=== PATIENT | male | born 1960 | race Hispanic/Latino ===

== ENCOUNTER 2018-07-20 13:23 | Emergency (ER) | payer OTHER ==
[~2018-07-20] VITALS: Ht 170.2 cm; Wt 70.3 kg
[2018-07-20] MEDS ORDERED: SODIUM CHLORIDE 0.9% 1000ML 1,000 ML IV STA ×2 (14:00→15:57)
[2018-07-20 14:22] LABS: BASOPHILS # (AUTO) 0.1 (0.0-0.1); EOSINOPHILS # (AUTO) 0.3 (0.0-0.4); EOSINOPHILS % 3.7 % (0.0-6.0); HEMOGLOBIN 14.1 g/dL (14.0-18.0); LYMPHOCYTES % 13.2 % (18.0-39.1); MEAN CORPUSCULAR HEMOGLOBIN 31.8 pg (28-32); MEAN CORPUSCULAR HGB CONC 34.4 g/dL (31-35); MEAN CORPUSCULAR VOLUME 92.3 fL (81-99); MONOCYTES % 12.3 % (4.4-11.3); NEUTROPHILS # (AUTO) 5.4 (2.1-6.9); NEUTROPHILS % 69.3 % (38.7-80.0); PLATELET COUNT 204 x10e3/uL (140-360); RED BLOOD COUNT 4.44 x10e6/uL (4.3-5.7); RED CELL DISTRIBUTION WIDTH 12.2 % (11.7-14.4)
[2018-07-20 14:35] LABS: AMPHETAMINES SCREEN,URINE NEGATIVE (NEGATIVE); BENZODIAZEPINES SCREEN,URINE NEGATIVE (NEGATIVE); PHENCYCLIDINE SCREEN,URINE NEGATIVE (NEGATIVE)
[2018-07-20 14:38] LABS: ALANINE AMINOTRANSFERASE 79 IU/L (0-55); ALBUMIN 3.2 g/dL (3.5-5.0); ALBUMIN/GLOBULIN RATIO 0.7 (0.8-2.0); ALKALINE PHOSPHATASE 78 IU/L (40-150); ANION GAP 16.4 mmol/L (8-16); BLOOD UREA NITROGEN 8 mg/dL (7-26); BUN/CREATININE RATIO 8 (6-25); CARBON DIOXIDE 21 mmol/L (22-29); CHLORIDE 93 mmol/L (98-107); CREATININE, SERUM 0.97 mg/dL (0.72-1.25); EST GLOMERULAR FILTRATION RATE > 60 ML/MIN (60-); POTASSIUM 4.4 mmol/L (3.5-5.1); SODIUM 126 mmol/L (136-145)
[2018-07-20 14:44] LABS: GLUCOSE 451 mg/dL (74-118)
--- NOTE | 2018-07-20 14:55 | Diagnostic Imaging Report ---
BILATERAL FEET - 3 Images EACH HISTORY: Abscess, infection, rule out osteomyelitis COMPARISON: None available. FINDINGS: Bones: A mildly impacted fracture involving the proximal metaphysis of the right fourth proximal phalanx. Regional subtle impaction of the adjacent proximal metaphysis of the third proximal phalanx is possible. No aggressive osseous lesion. A small right plantar calcaneal enthesophyte. Joints: Osseous alignment is within normal limits and the joint spaces are well-maintained. Soft tissues: Diffuse scattered atherosclerotic vascular calcifications. Mild nonspecific right foot swelling. IMPRESSION: 1. Mildly impacted, subacute appearing, incompletely healed fracture of the base of the right fourth proximal phalanx. 2. Possible minimally impacted fracture of the adjacent base of the right third proximal phalanx. 3. No radiographic evidence of osteomyelitis. Signed by: Dr. Catalino Reed D.O., M.M.M. on 07/20/2018 2:52 PM
[2018-07-20] MEDS ORDERED: INSULIN REGULAR, HUMAN 100 UNIT/1 ML 3ML VIAL ONE (15:16)
[2018-07-20] MEDS ORDERED: CLINDAMYCIN 600MG / 50ML 50 ML IV NR (15:16)
[2018-07-20] MEDS ORDERED: IBUPROFEN 400 MG TAB PO NR (16:00)
[2018-07-20] MEDS ORDERED: INSULIN REGULAR, HUMAN 100 UNIT/1 ML 3ML VIAL SQ NR (16:00)
[2018-07-20] MEDS ORDERED: MORPHINE SULFATE INJ 4 MG/ML INJ 1ML IV STA (17:11)
== END 2018-07-20 18:02 | disposition home or self-care (01) ==
LOC: ER 13:23
DX: L03.116 Cellulitis of left lower limb (principal); L03.115 Cellulitis of right lower limb; E11.65 Type 2 diabetes mellitus with hyperglycemia; Z86.14 Personal history of Methicillin resistant Staphylococcus aureus infection; Z87.891 Personal history of nicotine dependence; F10.10 Alcohol abuse, uncomplicated; Z83.3 Family history of diabetes mellitus; Z82.49 Family history of ischemic heart disease and other diseases of the circulatory system; Z79.4 Long term (current) use of insulin
CPT/HCPCS: 36415; 80053; 80307; 80320; 82948; 83605; 85025; 87040; 99284; J2270; J7030

== ENCOUNTER 2018-07-28 01:28 | Inpatient (IN) | payer OTHER ==
[~2018-07-28] VITALS: Ht 167.6 cm; Wt 76.7 kg
[2018-07-28] VITALS (7 sets, daily range): BP systolic 106–134; BP diastolic 58–86
--- OUTSIDE RECORDS SUMMARY | 2018-07-28 01:31 | XMS REPORT ---
Author Author [facility] Address Unknown Phone Unavailable Care Team Providers Care Textile Machine Operator Name Role Phone Almita HARVEY Unavailable Unavailable Problems This patient has no known problems. Allergies, Adverse Reactions, Alerts This patient has no known allergies or adverse reactions. Medications This patient has no known medications. Results Test Description Test Time Test Comments Text Results Atomic Results Result Comments FOOT COMPLETE BILATERAL 2018-07-20 14:40:00 [place] [id number] [place] [id number] Patient Name: TRUONG SHARMA MR #: [id number] : 1960 Age/Sex: 58/M Req #: [id number] Adm Physician: Ordered by: OLGA ERICKSON PROVIDER NETWORK MANAGER Report #: [id number] Location: ER Room/Bed: Procedure: [id number] DX/FOOT COMPLETE BILATERAL Exam Date: 07/20/18 Exam Time: 1420 REPORT STATUS: Signed BILATERAL FEET - 3 Images EACH HISTORY: Abscess, infection, rule out osteomyelitis COMPARISON: None available. FINDINGS: Bones: A mildly impacted fracture involving the proximal metaphysis of the right fourth proximal phalanx. Regional subtle impaction of the adjacent proximal metaphysis of the third proximal phalanx is possible. No aggressive osseous lesion. A small right plantar calcaneal enthesophyte. Joints: Osseous alignment is within normal limits and the joint spaces are well-maintained. Soft tissues: Diffuse scattered atherosclerotic vascular calcifications. Mild nonspecific right foot swelling. IMPRESSION: 1. Mildly impacted, subacute appearing, incompletely healed fracture of the base of the right fourth proximal phalanx. 2. Possible minimally impacted fracture of the adjacent base of the right third proximal phalanx. 3. No radiographic evidence of osteomyelitis. Signed by: Dr. Darrius Reed D.O., M.M.M. on 07/20/2018 2:52 PM Dictated By: DARRIUS REED DO 145 Transcribed By: ANDREI on 07/20/181451 COPY TO: OLGA ERICKSON NP
[2018-07-28 02:09] LABS: BASOPHILS # (AUTO) 0.1 (0.0-0.1); BASOPHILS % 0.9 % (0.0-1.0); EOSINOPHILS # (AUTO) 0.4 (0.0-0.4); EOSINOPHILS % 5.5 % (0.0-6.0); HEMATOCRIT 39.9 % (38.2-49.6); HEMOGLOBIN 13.4 g/dL (14.0-18.0); LYMPHOCYTES # (AUTO) 1.4 (1.0-3.2); LYMPHOCYTES % 17.4 % (18.0-39.1); MEAN CORPUSCULAR HGB CONC 33.6 g/dL (31-35); MEAN CORPUSCULAR VOLUME 92.4 fL (81-99); MONOCYTES # (AUTO) 0.9 (0.2-0.8); MONOCYTES % 11.7 % (4.4-11.3); NEUTROPHILS # (AUTO) 4.9 (2.1-6.9); NEUTROPHILS % 63.9 % (38.7-80.0); PLATELET COUNT 285 x10e3/uL (140-360); RED BLOOD COUNT 4.32 x10e6/uL (4.3-5.7); RED CELL DISTRIBUTION WIDTH 11.9 % (11.7-14.4)
[2018-07-28 02:29] LABS: ALBUMIN 3.1 g/dL (3.5-5.0); ALBUMIN/GLOBULIN RATIO 0.6 (0.8-2.0); ANION GAP 13.8 mmol/L (8-16); CALCIUM 9.3 mg/dL (8.4-10.2); CREATININE, SERUM 1.26 mg/dL (0.72-1.25); POTASSIUM 3.8 mmol/L (3.5-5.1)
[2018-07-28] MEDS ORDERED: MEROPENEM 1GRAM 1 GM in SODIUM CHLORIDE 0.9% 100 ML 100 ML IV STA (04:09)
[2018-07-28] MEDS ORDERED: VANCOMYCIN 1GM/NS 250 ML 250 ML IV STA (04:09)
[2018-07-28] MEDS ORDERED: SODIUM CHLORIDE 0.9% 1000ML 1,000 ML IV SCH (04:22)
[2018-07-28] MEDS ORDERED: MORPHINE SULFATE 2 MG/ML SYR 1ML IV PRN (04:30)
[2018-07-28] MEDS ORDERED: DEXTROSE 50% SYRINGE 50 ML IV PRN ×2 (04:30→14:45)
[2018-07-28] MEDS ORDERED: ONDANSETRON HCL INJ 2MG/ML 2ML 2 MG/ML VIAL IV PRN ×2 (04:30→14:45)
--- NOTE | 2018-07-28 04:57 | Diagnostic Imaging Report ---
Exam: Right foot 2 views History: pain Comparison: None. Findings: No fracture or malalignment. Soft tissue swelling of the hallux. Vascular complications. Impression: Soft tissue swelling of the hallux. No osteomyelitis. Signed by: Dr. Zac Charles M.D. on 07/28/2018 4:54 AM
[2018-07-28] MEDS: MORPHINE SULFATE INJ 4 MG/ML INJ 1ML IV PRN ×3 (06:25→17:19)
--- NOTE | 2018-07-28 07:00 | NUR ---
received report from off going nurse. patient in room in bed. iv fluids as ordered. right foot wrapped with kerlex and is clean and dry. pending room assignment for admission, bed down call light in reach. will continue to monitor.
[2018-07-28] MEDS ORDERED: INSULIN LISPRO 100 UNIT/1 ML 3ML VIAL SQ SCH (07:30)
[2018-07-28 07:33] LABS: INR 1.01; PROTHROMBIN TIME 13.8 seconds (11.9-14.5)
[2018-07-28 07:34] LABS: PARTIAL THROMBOPLASTIN TIME 33.9 seconds (23.8-35.5)
--- NOTE | 2018-07-28 08:17 | NUR ---
consent for I&D of right foot abscess signed and placed into chart. patient changed into gown in prep for sx.
--- NOTE | 2018-07-28 08:24 | NUR ---
OR Tech in ER to transport patient for procedure. patient would like to be called when out of surgery. Chelly -
[2018-07-28] MEDS ORDERED: FENTANYL CITRATE/PF 100MCG/2 ML INJ ONE ×2 (09:34→13:42)
--- NOTE | 2018-07-28 10:44 | History and Physical ---
REASON FOR ADMISSION: Right foot abscess. HISTORY OF PRESENT ILLNESS: The patient is a gentleman, who is a diabetic, hypertensive, chronic kidney disease, stage 3. The patient presented earlier in the emergency room a week earlier after sustaining an injury to his foot after jumping off some rods, where he felt like he was having a cellulitis, so he was given antibiotic medications. Unfortunately, he noticed his foot to get worse with increasing pain and swelling, so therefore, he re-presented back to the emergency room where he was diagnosed to have a right foot abscess on the plantar side, so he is going to be admitted for further evaluation and treatment. PAST MEDICAL HISTORY: Diabetes, hypertension, peripheral arterial disease, chronic kidney disease, stage 3. MEDICATIONS: See JUN. ALLERGIES: SEE JUN. SOCIAL HISTORY: Occasional drinker. FAMILY HISTORY: Hypertension. PHYSICAL EXAMINATION: VITAL SIGNS: Temperature 98, blood pressure 140/99, pulse 74, and sats 98% on room air. GENERAL: Lying in bed, in no apparent distress. NECK: Supple. No JVD. CARDIOVASCULAR: Regular rate and rhythm. LUNGS: Clear to auscultation bilaterally. ABDOMEN: Good bowel sounds. Soft, nontender. EXTREMITIES: No clubbing or cyanosis. His right plantar foot is swollen, red erythematous. NEUROLOGIC: Nonfocal. ASSESSMENT AND PLAN: 1. Right foot abscess. We will continue with IV antibiotics and consult Dr. Mcmanus of Podiatry as well as Dr. Garcia. 2. Hypertension. Continue his home medications and monitor blood pressure. 3. Diabetes. Continue to monitor. 4. Chronic kidney disease, stage 3. Continue to monitor. 5. Peripheral arterial disease. Continue current care with his medication. We may need to do arterial Dopplers as well. Please see hospital chart for full details. MD LESA Neal/LYLA /[id number]
--- NOTE | 2018-07-28 10:49 | Pre Op History & Physical ---
REPORT TITLE: Preoperative H and P and consultation. CHIEF COMPLAINT AND HISTORY OF CHIEF COMPLAINT: I have been asked to see Mr. Serrato due to an abscess with cellulitis of the right foot. He apparently came into the ER last week and was given a round of IV antibiotics and discharged. He had stepped on a rock and was feeling some pain in his foot. After discharge, he continued working and walking on his foot and noticed increase in redness, swelling, and was unable to bear weight on his foot, came back to the ER last night and is evaluated this morning. He is currently afebrile and does not complain of chills or difficulty in breathing. Review of the case with Dr. Sutton of emergency medicine shows that he did seek care five days ago in our ER. REVIEW OF SYSTEMS: Otherwise negative. No complaints of fever, nausea, vomiting, or chills. No abdominal pain. He does have difficulty walking and severe pain and swelling in the right foot. PREVIOUS MEDICAL HISTORY: Does include diabetes. MEDICATIONS: Please see medical reconciliation form. SOCIAL HISTORY: The patient is a nonsmoker, who does consume beer on a daily basis. PHYSICAL EXAMINATION: EXTREMITIES: Physical evaluation of the lower extremity, the patient has nonpalpable pedal pulses likely due to edema. DERMATOLOGIC: There appears to be a loss of protective sensation, although with the degree of swelling he does have pain to pressure. There is a large abscessed area on the plantar aspect of his right foot. There is a small open area where an incision was made by the ER doctor for obtaining a culture and sensitivity. When the foot expressed, there is a purulent exudate exuded from that small wound and it would appear that the abscess is much larger than the small area that is draining. MUSCULOSKELETAL: The patient's foot is otherwise within normal limits. He does have mycotic nails, chronic tinea pedis, and some degree of atrophic skin changes bilaterally. Radiographs show no osteomyelitis that is obvious at this point. DIAGNOSES: Abscess with cellulitis of the right foot. Diabetes with distal peripheral neuropathy and probable peripheral arterial disease. PLAN: For an I and D with deep wound debridement of the right foot. Admission for further medical workup and vascular consultations, he will need IV antibiotics. Consent for I and D with deep wound debridement today as he is n.p.o. we will proceed directly to the OR. Jere PEGGY Mcmanus /[id number]
[2018-07-28] MEDS ORDERED: MORPHINE SULFATE INJ 4 MG/ML INJ 1ML ONE (11:32)
[2018-07-28] MEDS ORDERED: MEROPENEM 1GM 100 ML IV SCH (12:00)
--- NOTE | 2018-07-28 13:00 | NUR ---
RCD PT FROM RECOVERY BY BED PT IS ALERT AND ORIENTED VITALS CHECKED PT RESTING ON BED NO SIGNS OF ANY DISTRESS NOTED IV PATENT ADMISSION ASSESSMENT AND HISTORY DONE WOUND ON THE LEFT FOOT COVERED BY DRESSING NO SIGNS OF ANY BLEEDING THERE BED LOW AND LOCKED CALL LIGHT IN REACH
--- NOTE | 2018-07-28 13:30 | NUR ---
INCISION AND DRAINAGE DONE ON RIGHT FOOT NOT IN LEFT FOOT
[2018-07-28] MEDS ORDERED: MIDAZOLAM HCL 2 MG/2 ML VIAL ONE (13:42)
--- NOTE | 2018-07-28 14:00 | NUR ---
ELEVATED RT FOOT AND APPLIED ICE BAG
[2018-07-28] MEDS: SODIUM CHLORIDE 0.9% 1000ML 1,000 ML IV SCH ×2 (14:45→22:45)
[2018-07-28] MEDS: VANCOMYCIN 1GM/NS 250 ML 250 ML IV SCH (15:17)
[2018-07-28] MEDS ORDERED: VANCOMYCIN 1GM/NS 250 ML 250 ML IV SCH (16:00)
--- NOTE | 2018-07-28 16:00 | Operative Report ---
DATE OF PROCEDURE: SURGEON: Jere Mcmanus DPM PREOPERATIVE DIAGNOSIS: Abscess cellulitis of the right foot. POSTOPERATIVE DIAGNOSIS: Abscess cellulitis of the right foot. TITLE OF OPERATION: I and D with deep wound debridement, right foot. ANESTHESIA: General endotracheal, Dr. Paul. HEMOSTASIS: None used. PROCEDURE IN DETAIL: The patient was taken to the operating room in a mildly sedated state and placed upon the operating table in supine position. Following induction of general anesthetic, the right foot was prepped and draped in the usual aseptic manner utilizing Betadine prep. The right lower extremity was placed on the operating table prior to performing the following procedure. Procedure #1 is the incision and drainage with deep wound debridement of the right foot without use of the tourniquet. After a full surgical prep, a transverse incision was placed at the level of the surgical neck of the metatarsals proximal to the weightbearing surface. It was in this area that a large abscess with a small draining area with purulent exudate was noted. This small draining area had been facilitated in the ER where a culture and sensitivity had already been taken. On expression, a significant amount of purulent exudate was expressed from this fairly superficial wound. The transverse wound into deep tissues showed a significant amount of purulent exudate, not only subcutaneously, but also into the intermetatarsal spaces and proximally into the central arch area both superficial to and deep to the plantar fascia. Full open incision to allow for drainage was performed with each plantar space of the foot probed and drained. The necrotic superficial and deep tissue including skin, subcutaneous tissue, and muscle was removed from the plantar aspect of the foot. The wound itself after debridement was approximately 6 cm x 4 cm and 3 cm deep to tendon and muscle. This debridement was excisional in nature. After all the compartments had been probed and the wound was irrigated with copious amounts of a bacitracin solution, the release of the compartments was felt to be complete. The area was packed open with quarter-inch iodoform gauze, nonadhesive dressings, and the appropriate mildly compressive dressings. There was some bleeding, but it was felt to be minimal considering the significance of the wound. Arterial Dopplers are ordered and Vascular consultation will be obtained. The patient was transported to the PACU for further evaluation and treatment and will be admitted for IV antibiotics and further medical stabilization and workup. Jere PEGGY Mcmanus /[id number]
[2018-07-28] MEDS: INSULIN LISPRO 100 UNIT/1 ML 3ML VIAL SQ SCH ×2 (16:30→21:00)
--- NOTE | 2018-07-28 16:57 | NUR ---
paged and notified the fever to dr trotter got new orders
[2018-07-28] MEDS: ACETAMINOPHEN 325 MG TAB PO PRN (17:08)
--- NOTE | 2018-07-28 18:30 | NUR ---
RECHECKED FEVER 100.3 HR 123 NIGHT NURSE AWARE ABOUT IT BECAUSE OF FEVER DIDN'T NOTIFIED DR MARTÍNEZ
[2018-07-28] MEDS ORDERED: PROPOFOL IV EMULSION 10 MG/ML 20 ML VIAL ONE (18:43)
[2018-07-28] MEDS ORDERED: LIDOCAINE HCL 2% LOCAL INJ 5 ML SDV VIAL INJ ONE (18:43)
[2018-07-28] MEDS ORDERED: ONDANSETRON HCL INJ 2MG/ML 2ML 2 MG/ML VIAL ONE (18:43)
[2018-07-28] MEDS ORDERED: SEVOFLURANE INHAL SOLN 250 ML PEN BTL ONE (18:43)
--- NOTE | 2018-07-28 18:51 | NUR ---
PT RESTING ON BED BED BED SIDE REPORT GIVEN TO ONCOMING NURSE
[2018-07-28] MEDS: MEROPENEM 1GM 100 ML IV SCH (20:56)
[2018-07-28] MEDS: INSULIN LISPRO 100 UNIT/1 ML 3ML VIAL SQ ONE (21:24)
--- NOTE | 2018-07-28 22:12 | Consultation ---
DATE OF CONSULTATION: REASON FOR CONSULTATION: Infection of the foot. HISTORY OF PRESENT ILLNESS: This patient who is a 58-year-old [place] male, the patient has history of diabetes mellitus, hypertension, arterial disease, chronic kidney disease stage 3. Two weeks ago, he jumped from a truck and he had to rock, sustaining an injury to his right foot. Apparently, he has some swelling and bruising, but now there is redness, swelling, fever and chills. He came to the hospital because of the pain. The patient was admitted, he was found to have an abscess and underwent I and D. The patient apparently was in the emergency room a week ago, received IV antibiotics. After discharge, he continued to work and the redness and swelling got worse, so he came back to the emergency room where he was admitted. He underwent I and D and I am asked to see him. PAST MEDICAL HISTORY: Diabetes mellitus. PAST SURGICAL HISTORY: Recent I and D of the foot. ALLERGIES: NKA. SOCIAL HISTORY: He denies smoking, but he drinks 8 beers a day. LABORATORY DATA: White count 7.7, hemoglobin 13. Sodium 126, potassium 3.8, creatinine 1.26. REVIEW OF SYSTEMS: HEENT: Negative. PULMONARY: Negative. CARDIAC: Negative. : Negative. PHYSICAL EXAMINATION: GENERAL: He is currently alert, oriented, does not seem to be in acute distress. VITAL SIGNS: Stable, currently afebrile. HEENT: He is not icteric. NECK: Supple. CHEST: Clear. HEART: S1, S2. No S3, S4, or murmur. ABDOMEN: Soft. Bowel sounds present. No tenderness. EXTREMITIES: There is no edema. The patient did undergo I and D by Dr. Mcmanus, culture was sent. IMPRESSION: 1. Abscess of the foot after an injury, status post I and D. X-ray was negative for osteo. Continue vancomycin and meropenem for the time being. 2. Chronic kidney disease. We will follow levels and adjust dose. Recheck CBC. 3. History of alcoholism. Observe the patient we will follow. MD SYLVIE Galloway/LYLA /[id number]
--- NOTE | 2018-07-28 23:28 | Consultation ---
DATE OF CONSULTATION: Cardiology Consultation. HISTORY OF PRESENT ILLNESS: This is a 58-year-old man with a history of diabetes, hypertension, chronic kidney disease, and hyperlipidemia, presented to the Emergency Department after sustaining an injury to his foot which further progressed into cellulitis. The patient had increasing amounts of pain, swelling and redness and was found to have a right foot abscess. He just received an incision and drainage with deep wound debridement of the right foot. We have been asked to consult on the patient with cardiovascular risk factors and possible vascular disease. REVIEW OF SYSTEMS: A 12-point review of system was conducted, is negative otherwise stated above in the HPI. PAST MEDICAL HISTORY: As stated above in the HPI. PAST SURGICAL HISTORY: Incision and drainage. PAST FAMILY HISTORY: No premature coronary artery disease or sudden cardiac . SOCIAL HISTORY: No illicit drug, alcohol, or tobacco use. ALLERGIES: PENICILLIN. MEDICATIONS: See medication reconciliation form. PHYSICAL EXAMINATION: VITAL SIGNS: Temperature is 98.1, heart rate is 108, blood pressure is 117/69, oxygen saturation 100% on room air, respirations are 18. GENERAL: Well appearing, well built, in no apparent distress. Alert and oriented x3. HEENT: Head is normocephalic, atraumatic. Eyes, the extraocular muscles are intact. Conjunctivae are clear. NECK: No JVD. No bruits. CARDIOVASCULAR: He is tachycardic, regular rhythm. Normal S1, S2. LUNGS: Clear to auscultation bilaterally. No wheezing or rales. ABDOMEN: Soft, nontender, nondistended. Normoactive bowel sounds. EXTREMITIES: No clubbing or cyanosis. The right foot is dressed and wrapped. LABORATORY DATA: Reviewed. RADIOLOGIC DATA: Arterial Doppler showed normal velocities and waveforms in bilateral lower extremities. IMPRESSION: 1. Right foot wound, status post incision and drainage with debridement. 2. Hypertension. 3. Hyperlipidemia. 4. Chronic kidney disease. RECOMMENDATIONS: Patient's arterial Doppler study showed no stenotic disease. His velocities and waveforms were within normal limits. The patient does not need angiography. Continue all current medications and treatment plan per primary team. Cesar Sihdu DO BM/MODL /[id number]
[2018-07-29] VITALS (8 sets, daily range): BP systolic 102–129; BP diastolic 60–69
[2018-07-29] MEDS: MEROPENEM 1GM 100 ML IV SCH ×3 (04:38→20:30)
[2018-07-29] MEDS: ACETAMINOPHEN 325 MG TAB PO PRN (04:39)
[2018-07-29 05:02] LABS: BASOPHILS # (AUTO) 0.1 (0.0-0.1); BASOPHILS % 0.6 % (0.0-1.0); EOSINOPHILS # (AUTO) 0.3 (0.0-0.4); EOSINOPHILS % 3.8 % (0.0-6.0); HEMATOCRIT 34.1 % (38.2-49.6); HEMOGLOBIN 11.4 g/dL (14.0-18.0); LYMPHOCYTES # (AUTO) 1.4 (1.0-3.2); LYMPHOCYTES % 18.4 % (18.0-39.1); MEAN CORPUSCULAR HEMOGLOBIN 30.9 pg (28-32); MEAN CORPUSCULAR HGB CONC 33.4 g/dL (31-35); MEAN CORPUSCULAR VOLUME 92.4 fL (81-99); MONOCYTES # (AUTO) 1.1 (0.2-0.8); MONOCYTES % 13.9 % (4.4-11.3); NEUTROPHILS # (AUTO) 4.8 (2.1-6.9); NEUTROPHILS % 62.8 % (38.7-80.0); PLATELET COUNT 250 x10e3/uL (140-360); RED BLOOD COUNT 3.69 x10e6/uL (4.3-5.7); RED CELL DISTRIBUTION WIDTH 11.9 % (11.7-14.4)
[2018-07-29 05:28] LABS: ANION GAP 10.4 mmol/L (8-16); BLOOD UREA NITROGEN 12 mg/dL (7-26); BUN/CREATININE RATIO 13 (6-25); CALCIUM 8.9 mg/dL (8.4-10.2); CARBON DIOXIDE 25 mmol/L (22-29); CHLORIDE 99 mmol/L (98-107); CREATININE, SERUM 0.96 mg/dL (0.72-1.25); EST GLOMERULAR FILTRATION RATE > 60 ML/MIN (60-); GLUCOSE 175 mg/dL (74-118); POTASSIUM 4.4 mmol/L (3.5-5.1); SODIUM 130 mmol/L (136-145)
[2018-07-29] MEDS: VANCOMYCIN 1GM/NS 250 ML 250 ML IV SCH ×2 (05:30→16:00)
[2018-07-29] MEDS: SODIUM CHLORIDE 0.9% 1000ML 1,000 ML IV SCH ×3 (07:00→22:45)
--- NOTE | 2018-07-29 07:10 | NUR ---
RCD PT AT BED PT IS ALERT AND ORIENTED PT RESTING ON BED NO SIGNS OF ANY DISTRESS NOTED IV PATENT BED LOW AND LOCKED CALL LIGHT IN REACH
[2018-07-29] MEDS: INSULIN LISPRO 100 UNIT/1 ML 3ML VIAL SQ SCH ×4 (07:30→21:00)
--- NOTE | 2018-07-29 11:19 | NUR ---
SOCIAL WORK INITIAL ASSESSMENT Sweat Band Sewer to bedside to discuss plan of care with patient/family. CM/SW role and care transitions discussed. Anticipated discharge plan discussed along with duration of care. CM/SW discussed patients right to make decisions in care. CM/SW work hours given. Patient lives: HOME WITH Admit/Transfer: VIA ED POA/Emergency contact: CHRYSTAL [phone] OR [phone] Current/Previous Home Health: NONE PCP/Follow-up Care: KAMRAN Current/Previous DME: NONE Other Services: NONE Employment Status: UNEMPLOYED Areas of Concerns: WS IN ED LAST TUESDAY WITH SAME COMPLAINT BUT STATES WORSE Referral Needs: NA Education Needs:NA IMM/JIMENEZ given and signed (if applicable): NA Goal for discharge: RETURN HOME CM/SW left business card at the bedside with contact information. Name and number was also written on the patients whiteboard. Patient verbalized understanding of discussion. CM will follow-up with ongoing discharge and transition of care needs.
--- NOTE | 2018-07-29 12:29 | Progress Note ---
DATE: 07/29/2018 Cardiology Progress Note SUBJECTIVE: The patient denies chest pain or shortness of breath. OBJECTIVE: VITAL SIGNS: Temp 98.1 degrees, pulse 85, respiratory rate 18, blood pressure 107/66, and oxygen saturation 96% on room air. GENERAL: Awake, alert, in no acute distress. LUNGS: Clear to auscultation bilaterally. No wheezes or crackles. CARDIOVASCULAR: Normal rate, regular rhythm. No murmur. Normal S1, S2. ABDOMEN: Soft, nontender. EXTREMITIES: No edema. CARDIAC MEDICATIONS: None. LABORATORY DATA: WBC 7.71, hemoglobin 11.4, hematocrit 34.1, and platelets 250. Sodium 130, potassium 4.4, chloride 99, CO2 25, BUN 12, and creatinine 0.96. IMPRESSION: 1. Right foot wound status post I and D with debridement. 2. Hypertension. 3. Hyperlipidemia. 4. Acute kidney injury, improved. RECOMMENDATIONS: The patient's arterial Doppler was without evidence of hemodynamically significant peripheral arterial disease. No peripheral angiogram is indicated at this time. Continue wound care per Podiatry. Antibiotics per primary service. Continue current cardiac medications. Thank you for this consult. We will continue to follow. Kathy Miranda MD ABS/MODL /[id number]
--- NOTE | 2018-07-29 18:44 | NUR ---
PT RESTING ON BED BED BED SIDE REPORT GIVEN TO ONCOMING NURSE
[2018-07-30] VITALS (8 sets, daily range): BP systolic 118–134; BP diastolic 71–96
[2018-07-30] MEDS: MORPHINE SULFATE INJ 4 MG/ML INJ 1ML IV PRN ×2 (00:17→20:40)
[2018-07-30] MEDS: MEROPENEM 1GM 100 ML IV SCH ×3 (04:10→20:30)
[2018-07-30] MEDS: INSULIN LISPRO 100 UNIT/1 ML 3ML VIAL SQ ONE (04:10)
[2018-07-30] MEDS: VANCOMYCIN 1GM/NS 250 ML 250 ML IV SCH ×2 (04:30→16:00)
[2018-07-30] MEDS: SODIUM CHLORIDE 0.9% 1000ML 1,000 ML IV SCH ×3 (05:37→14:45)
[2018-07-30] MEDS: INSULIN LISPRO 100 UNIT/1 ML 3ML VIAL SQ SCH ×4 (07:30→21:10)
--- NOTE | 2018-07-30 14:30 | Progress Note ---
DATE: 07/30/2018 Cardiology Progress Note SUBJECTIVE: The patient denies chest pain or shortness of breath. OBJECTIVE: VITAL SIGNS: Temperature 98.5 degrees, pulse 86, respiratory rate 18, blood pressure 127/73, and oxygen saturation 97% on room air. GENERAL: Awake, alert, no acute distress. LUNGS: Clear to auscultation bilaterally. No wheezes or crackles. CARDIOVASCULAR: Normal rate, regular rhythm. No murmur. Normal S1, S2. ABDOMEN: Soft, nontender. EXTREMITIES: No edema. CARDIAC MEDICATIONS: None. LABORATORY DATA: None today. IMPRESSION: 1. Right foot wound, status post incision and drainage with debridement. 2. Hypertension, hyperlipidemia, and acute kidney injury, improved. RECOMMENDATIONS: The patient's arterial Doppler was without evidence of hemodynamically significant peripheral arterial disease. No peripheral angiogram is indicated at this time. Continue wound care per Podiatry. Antibiotics per primary service. Continue current cardiac medications. Thank you for this consult. We will continue to follow. Kathy Miranda MD ABS/MODL /[id number]
--- NOTE | 2018-07-30 18:10 | NUR ---
DR GRAY OPEN THE WOUND DRESSING ON THE RT FOOT AND LEFT SHE CAME AND SAID COVER THE DRESSING WENT TO THE PTS ROOM LOT OF BLEEDING FROM THE WOUND ASKED HER WHAT KIND OF DRESSING SHE SAID IODOFORM ,BETADINE WET TO DRY DRESSING PRESSURE DRESSING GIVEN AND CLEANED THE AREA ,
--- NOTE | 2018-07-30 19:17 | NUR ---
PT RESTING ON BED BED BED SIDE REPORT GIVEN TO ONCOMING NURSE
--- NOTE | 2018-07-30 22:01 | Progress Note ---
DATE: 07/30/2018 SUBJECTIVE: The patient was seen at bedside today. No acute distress. Dressings were changed to the right foot. Denies any constitutional symptoms. ASSESSMENT: 1. Dressings were changed at bedtime today. The base of the ulceration is granular with bleeding noted at this time. Minimal pain on palpation. 2. Status post 2 days right foot wound debridement. 3. Hypertension. 4. Hyperlipidemia. 5. Chronic kidney disease. RECOMMENDATIONS: Continue with wound care orders consisting of iodoform packing with a Betadine wet-to-dry dressing to the right foot. Dr. Mcmanus will continue to follow. Thank you again for including me in the care of this patient. PEGGY Tobin/MODL /[id number]
[2018-07-31] VITALS (8 sets, daily range): BP systolic 113–153; BP diastolic 75–89
[2018-07-31] MEDS: SODIUM CHLORIDE 0.9% 1000ML 1,000 ML IV SCH ×4 (01:58→22:45)
[2018-07-31] MEDS: MEROPENEM 1GM 100 ML IV SCH ×2 (03:57→12:15)
[2018-07-31] MEDS: VANCOMYCIN 1GM/NS 250 ML 250 ML IV SCH (04:35)
[2018-07-31] MEDS: MORPHINE SULFATE INJ 4 MG/ML INJ 1ML IV PRN ×5 (05:21→22:54)
[2018-07-31] MEDS: INSULIN LISPRO 100 UNIT/1 ML 3ML VIAL SQ SCH ×4 (08:30→21:00)
--- NOTE | 2018-07-31 14:02 | Progress Note ---
DATE: 07/31/2018 Cardiology Progress Note SUBJECTIVE: The patient denies chest pain or shortness of breath. OBJECTIVE: VITAL SIGNS: Temperature 98.5 degrees, pulse 76, respiratory rate 20, blood pressure 125/81, and oxygen saturation 99%. GENERAL: Awake, alert, in no acute distress. LUNGS: Clear to auscultation bilaterally. No wheezes or crackles. CARDIOVASCULAR: Normal rate, regular rhythm. No murmur. Normal S1, S2. ABDOMEN: Soft, nontender. EXTREMITIES: No edema. CARDIAC MEDICATIONS: None. LABS: None today. IMPRESSION: 1. Right foot wound status post I and D with debridement. 2. Hypertension. 3. Hyperlipidemia. 4. Acute kidney injury, improved. RECOMMENDATIONS: The patient's arterial Doppler was without evidence of hemodynamically significant peripheral arterial disease. No peripheral angiogram is indicated at this time. Wound care per Podiatry. Antibiotics per primary service. Continue current cardiac medications. Thank you for this consult. We will continue to follow. Kathy Miranda MD ABS/MODL /[id number]
--- NOTE | 2018-07-31 15:00 | NUR ---
Patient had a moderate sized BM Addendum: 07/31/18 at 1836 by Brandy Balderrama RN Disregard. Entered in error
--- NOTE | 2018-07-31 17:02 | NUR ---
WOUND CARE CONSULTATION- INITIAL EVALUATION: Patient admitted from Home to ER for Right Foot pain and worsening wound to Right Foot. DX: Abscess with Early Gangrene to Right Foot, DM type 2. PVD. S/P Abscession of Right Foot Plantar Ulcer by Dr. Mcmanus, SInes 07/28/18 MRSA+ of Right Foot Ulcer Current Tx: Iodoform Packing Gauze and WTD with Betadine Dressing Daily Doppler Studies to BLE performed. Unable to review results. awaiting report. WBC7.1 HGB11.4 NEUT%62.8 [id number] WOUND CARE Consulted for Right Foot Ulcer - Dr. Mcmanus managing care of Foot ulcer. PATIENT VISIT: - Patient AAOX3. Patient in good spirits. - Right foot wound presents with full thickness ulceration at plantar aspect. Dusky red granular tissue 100% over wound bed. Periwound blanched/ ischemic. Unable to determine if area exceeds dermis at this time but appears to be improving compared to images spouse had on her personal phone. Informed Dr. Mcmanus of current findings and plan of care reviewed. - Ordered to Start NPWT-120mmHg Cont. upon pump availability with black foam to suction. No Pressure Ulcers Identified, Denies rashes, itching. [place] Score 20 Conservative PUP Active Visco Mattress in place. IMPRESSION: Right Foot Plantar - DFU Grade 3 with PVD. S/P Abscession. RECOMMENDATION: 1. Right Foot Plantar- DFU grade 3 - S/P Abscession - Cleanse wound with NS and 4x4 gauze - Apply NPWT -120mmHg continuous change TIW. 2. Continue NWB status to Right Foot. 3. Offload Heels with Pillows / Bilateral Heel Protectors While In bed 4. Encourage turning and repositioning every 2 Hours. Thank you for consulting with Wound Care. Addendum: 07/31/18 at 1719 by Sea Ordaz RN Amended: Links added.
[2018-07-31] MEDS: CLINDAMYCIN 600MG / 50ML 50 ML IV SCH ×2 (18:00→23:58)
--- NOTE | 2018-07-31 18:34 | NUR ---
Patient had another moderate sized brown normal stool, she no longer c/o being constipated Addendum: 07/31/18 at 1837 by Brandy Balderrama RN Disregard. Entered in error.
--- NOTE | 2018-07-31 19:30 | NUR ---
Patient received sitting up in bed. AAO x 4. Patient had no complaints of pain. No signs of respiratory distress. Fall precautions maintained. Patient instructed to call for assistance when needed. Call light within reach.
--- NOTE | 2018-07-31 21:43 | Progress Note ---
DATE: SUBJECTIVE: The patient is seen today status post I and D with deep wound debridement of the right foot. His wound is redressed today by the Wound Care. By photo evaluation, the wound base is mildly granular with a dusky appearance, minimal necrotic tissue, primarily wound status post debridement with minimal bleeding. Wound VAC has been ordered and will be applied in the morning. The patient is currently on IV antibiotics. Cultures are pending. Otherwise, stable. He states he is having minimal to no pain at this point, at least no pain that is not being covered by pain medication. Dressing is dry and intact otherwise, and the patient is stable at this point, needs to continue with current care. We will re-evaluate once cultures are in and definitive, and antibiotics are recommended by Dr. Garcia. PEGGY Thibodeaux/LYLA /[id number]
[2018-08-01] VITALS (7 sets, daily range): BP systolic 113–131; BP diastolic 72–82
[2018-08-01] MEDS: MORPHINE SULFATE INJ 4 MG/ML INJ 1ML IV PRN ×3 (05:33→16:32)
[2018-08-01] MEDS: CLINDAMYCIN 600MG / 50ML 50 ML IV SCH ×3 (06:40→17:11)
[2018-08-01] MEDS: SODIUM CHLORIDE 0.9% 1000ML 1,000 ML IV SCH ×3 (07:39→22:45)
[2018-08-01] MEDS: INSULIN LISPRO 100 UNIT/1 ML 3ML VIAL SQ SCH ×4 (08:00→21:00)
--- NOTE | 2018-08-01 15:02 | Progress Note ---
DATE: 08/01/2018 Cardiology Progress Note SUBJECTIVE: The patient denies chest pain or shortness of breath. OBJECTIVE: VITAL SIGNS: Temperature 98.8 degrees, pulse 71, respiratory rate 20, blood pressure 127/72, oxygen saturation 100%. GENERAL: Awake, alert, in no acute distress. LUNGS: Clear to auscultation bilaterally. No wheezes or crackles. CARDIOVASCULAR: Normal rate, regular rhythm. No murmur. Normal S1, S2. ABDOMEN: Soft, nontender. EXTREMITIES: No edema. CARDIAC MEDICATIONS: None. IMPRESSION: Right foot wound status post I and D with debridement next hypertension hyperlipidemia next acute kidney injury, improved. RECOMMENDATIONS: The patient's arterial Doppler was without evidence of hemodynamically significant peripheral arterial disease. No peripheral angiogram is indicated at this time. Wound care per Podiatry. Antibiotics per Primary Service. Continue current cardiac medications. The patient's blood pressure is controlled. Kathy Miranda MD ABS/MODL /[id number]
--- NOTE | 2018-08-01 16:29 | NUR ---
Spoke to Dr. Mcmanus regarding DC plan. He states plan is for pt to go home with wound vac, to be managed either by home health or Outpatient wound clinic. Per ID, pt can discharge on oral antibiotics. CM spoke to pt at bedside and he stated that he wants to go to the outpatient wound clinic if his insurance covers it. Choice letter signed for outpatient wound clinic and [employer] for wound vac. FS sent to wound clinic to check benefits. Wound vac paperwork was filled out and left on chart for Dr. Mcmanus to sign when he rounds. CM will follow up in AM.
--- NOTE | 2018-08-01 17:27 | NUR ---
WOUND CARE CONSULTATION- FOLLOW UP AND VAC PLACEMENT: Patient admitted from Home to ER for Right Foot pain and worsening wound to Right Foot. DX: Abscess with Early Gangrene to Right Foot, DM type 2. PVD. S/P Abscession of Right Foot Plantar Ulcer by Dr. Mcmanus, SInes 07/28/18 MRSA+ of Right Foot Ulcer Current Tx: Iodoform Packing Gauze and WTD with Betadine Dressing Daily Doppler Studies to BLE performed. Unable to review results. awaiting report. WOUND CARE Consulted for Right Foot Ulcer - Dr. Mcmanus managing care of Foot ulcer. PATIENT VISIT: - Patient AAOX3. Patient in good spirits. - Right foot wound presents with full thickness ulceration at plantar aspect (2.5 x 3.5 x 1.5cm). Dusky red granular tissue 100% over wound bed. Periwound blanched/ ischemic. Healing Slow. NPWT placement today. Informed Dr. Mcmanus of current findings and plan of care reviewed. - NPWT-120mmHg Cont. Today. No Pressure Ulcers Identified, Denies rashes, itching. Lake Score 20 Conservative PUP Active Visco Mattress in place. IMPRESSION: Right Foot Plantar - DFU Grade 3 with PVD. S/P Abscession. RECOMMENDATION:Continue Current Treatment Plan. 1. Right Foot Plantar- DFU grade 3 - S/P Abscession - Cleanse wound with NS and 4x4 gauze - Apply NPWT -120mmHg continuous change TIW. 2. Continue NWB status to Right Foot. 3. Offload Heels with Pillows / Bilateral Heel Protectors While In bed 4. Encourage turning and repositioning every 2 Hours. Thank you for consulting with Wound Care. Addendum: 08/01/18 at 1730 by Sea Ordaz RN Amended: Links added.
[2018-08-01] MEDS: ACETAMINOPHEN 325 MG TAB PO PRN (21:24)
--- NOTE | 2018-08-01 23:15 | Progress Note ---
DATE: SUBJECTIVE: The patient is seen today with wound VAC in place. He is doing quite well. He feels much better. His vascular status has been evaluated, noted to be adequate for wound healing. The patient has discussed his options for discharge and at this point is awaiting further IV antibiotic or oral antibiotic. DISPOSITION: If he needs IV antibiotics at home, he will need a PICC line, but if Dr. Garcia, Infectious Disease switches him to orals, he will be able to go home shortly without the PICC line and can do wound VAC changes at wound care center. Options of wound care center versus skilled care unit were discussed with the patient and he and his are excited about the opportunity to visit the wound care center. He will otherwise be discharged according to Infectious Disease planning and placement and acceptance by the wound care center. PEGGY Thibodeaux/LYLA /[id number]
[2018-08-02] VITALS: BP 116/72
[2018-08-02] MEDS: MORPHINE SULFATE INJ 4 MG/ML INJ 1ML IV PRN ×2 (00:16→08:49)
[2018-08-02] MEDS: CLINDAMYCIN 600MG / 50ML 50 ML IV SCH ×4 (00:32→18:00)
[2018-08-02 04:00] VITALS: BP 133/73
[2018-08-02 04:01] VITALS: BP 116/72
[2018-08-02 08:30] VITALS: BP 116/63
[2018-08-02] MEDS: SODIUM CHLORIDE 0.9% 1000ML 1,000 ML IV SCH ×2 (08:33→14:52)
[2018-08-02] MEDS: INSULIN LISPRO 100 UNIT/1 ML 3ML VIAL SQ SCH ×3 (08:34→17:37)
--- NOTE | 2018-08-02 08:44 | NUR ---
Signed wound vac order faxed to [facility] at [phone]. Informed Abdirashid Mendez [phone] with [facility].
[2018-08-02] MEDS ORDERED: ONDANSETRON HCL 4 MG ORAL DISINTEGRATING TAB PO PRN (09:45)
[2018-08-02 09:47] LABS: BASOPHILS # (AUTO) 0.1 (0.0-0.1); BASOPHILS % 1.7 % (0.0-1.0); EOSINOPHILS # (AUTO) 0.5 (0.0-0.4); EOSINOPHILS % 10.2 % (0.0-6.0); HEMATOCRIT 35.4 % (38.2-49.6); HEMOGLOBIN 11.7 g/dL (14.0-18.0); LYMPHOCYTES % 22.7 % (18.0-39.1); MEAN CORPUSCULAR HEMOGLOBIN 30.8 pg (28-32); MEAN CORPUSCULAR HGB CONC 33.1 g/dL (31-35); MEAN CORPUSCULAR VOLUME 93.2 fL (81-99); MONOCYTES # (AUTO) 0.5 (0.2-0.8); MONOCYTES % 11.8 % (4.4-11.3); NEUTROPHILS # (AUTO) 2.5 (2.1-6.9); NEUTROPHILS % 53.4 % (38.7-80.0); PLATELET COUNT 307 x10e3/uL (140-360); RED CELL DISTRIBUTION WIDTH 11.9 % (11.7-14.4)
[2018-08-02 10:03] LABS: BLOOD UREA NITROGEN 12 mg/dL (7-26); BUN/CREATININE RATIO 15 (6-25); CALCIUM 9.5 mg/dL (8.4-10.2); CARBON DIOXIDE 31 mmol/L (22-29); CHLORIDE 97 mmol/L (98-107); CREATININE, SERUM 0.81 mg/dL (0.72-1.25); EST GLOMERULAR FILTRATION RATE > 60 ML/MIN (60-); GLUCOSE 184 mg/dL (74-118); SODIUM 133 mmol/L (136-145)
[2018-08-02 12:00] VITALS: BP 121/73
--- NOTE | 2018-08-02 14:07 | NUR ---
Wound vac has been delivered to pt's bedside. JOANN called and spoke with Ibis at outpatient wound clinic. She stated that they do take pt's insurance. She will call pt and give him an appointment. EMMA Pryor was informed of above.
--- NOTE | 2018-08-02 16:05 | NUR ---
spoke to Reji LAW with I.D and he states he will call in RX to patients pharmacy. patient reports using [facility] pharmacy . pharmacy info communicated to Reji. notified of I.D clearing patient for d/c home and he agrees with new orders received to d/c patient home. pharmacy information also communicated to .
--- NOTE | 2018-08-02 16:47 | NUR ---
CM called and got appointment for pt at outpatient wound clinic for tomorrow at 10:30am. Appointment information was printed and given to pt. [address], [address] [place] [address] THANH Hurley will call in prescription for abx to pt's pharmacy. Pt to discharge home today.
[2018-08-02 17:10] VITALS: BP 121/80
--- NOTE | 2018-08-02 17:31 | Progress Note ---
DATE: 08/02/2018 Cardiology Progress Note SUBJECTIVE: The patient denies chest pain or shortness of breath. OBJECTIVE: VITAL SIGNS: Temperature 98 degrees, pulse 82, respiratory rate 18, blood pressure 121/72, and oxygen saturation 99% on room air. GENERAL: Awake, alert, in no acute distress. LUNGS: Clear to auscultation bilaterally. No wheeze or crackles. CARDIOVASCULAR: Normal rate, regular rhythm. No murmur. Normal S1, S2. ABDOMEN: Soft, nontender. EXTREMITIES: No edema. CARDIAC MEDICATIONS: None. IMPRESSION: 1. Right foot wound status post I and D with debridement. 2. Hypertension. 3. Hyperlipidemia. 4. Acute kidney injury, improved. RECOMMENDATIONS: The patient's arterial Doppler without evidence of hemodynamically significant peripheral arterial disease. No peripheral angiogram is indicated at this time. Wound care per Podiatry. Antibiotics per primary service. Continue current cardiac medications. The patient's blood pressure is controlled. Thank you for this consult. We will continue to follow. Kathy Miranda MD ABS/MODL /[id number]
--- NOTE | 2018-08-02 18:15 | NUR ---
pt request to remove PIV as he is wanting to get dressed to go home. states will be arriving to pick him up in 10mins and needs to get dressed, informed of IV antibiotic due at this time and states he will be discharging home and will not be able to wait for it.
--- NOTE | 2018-08-05 12:08 | Discharge Summary ---
DISCHARGE DIAGNOSES: 1. Right foot abscess, status post I and D. 2. Diabetes. HISTORY OF PRESENT ILLNESS: The patient is a gentleman, who stepped on his foot wrong and obtained a right foot abscess, where he was seen by Podiatry, who performed an I and D with large pus removal. Postprocedure, he was maintained on IV antibiotics. Once culture data was obtained, the patient was tailored to his antibiotic. Postoperatively, he did well with good pain control. He was seen by Cardiology for possible peripheral arterial disease. Arterial Doppler did not show any significant disease. At the time of discharge, he was sent home with antibiotics as well as continuation of the wound care and follow up with Dr. Mcmanus and Dr. Garcia, which patient was very happy with. Please see hospital chart for full details. MD LESA Neal/LYLA /[id number]
== END 2018-08-02 18:59 | disposition home or self-care (01) | DRG 854 ==
LOC: ER 01:28 → UNDOADMIN 04:55 → ERHOLD 04:55 → OR 08:18 → PACU V 09:26 → MED/SURG2 13:25
PROVIDERS: ADMIT Internal Medicine; ATTEND Internal Medicine
PROC: 0KBV0ZZ Excision of Right Foot Muscle, Open Approach (ICD-10-PCS; principal; 2018-07-28 09:00)
DX: A41.9 Sepsis, unspecified organism (principal); L02.611 Cutaneous abscess of right foot; N17.9 Acute kidney failure, unspecified; L03.115 Cellulitis of right lower limb; E87.1 Hypo-osmolality and hyponatremia; E11.42 Type 2 diabetes mellitus with diabetic polyneuropathy; Z88.0 Allergy status to penicillin; E11.22 Type 2 diabetes mellitus with diabetic chronic kidney disease; I12.9 Hypertensive chronic kidney disease with stage 1 through stage 4 chronic kidney disease, or unspecified chronic kidney disease; N18.3 Chronic kidney disease, stage 3 (moderate); F10.20 Alcohol dependence, uncomplicated; E78.5 Hyperlipidemia, unspecified; D64.9 Anemia, unspecified; B95.61 Methicillin susceptible Staphylococcus aureus infection as the cause of diseases classified elsewhere; R53.81 Other malaise; E11.65 Type 2 diabetes mellitus with hyperglycemia
CPT/HCPCS: 36415; 80048; 80053; 80202; 82948; 85025; 85610; 85730; 87071; 87075; 87186; 87205; 93925; 97605; 99284; J2001; J2185; J2250; J2270; J2405; J3370; J7030; Q4100

== ENCOUNTER → 2018-08-03 | Outpatient (CLI) | payer OTHER ==
[~2018-08-03] MED LIST: COLLAGENASE OINTMENT 30 GM TUBE ONE
== END ==
LOC: WCC 15:08
DX: E11.621 Type 2 diabetes mellitus with foot ulcer (principal); L97.421 Non-pressure chronic ulcer of left heel and midfoot limited to breakdown of skin

== ENCOUNTER 2018-08-07 15:32 | Outpatient (RCR) | payer OTHER | END 2018-08-22 | LOC: WCC 15:32 | PROVIDERS: ATTEND Podiatrist Foot & Ankle Surgery | DX: E11.621 Type 2 diabetes mellitus with foot ulcer (principal); E11.22 Type 2 diabetes mellitus with diabetic chronic kidney disease; L97.421 Non-pressure chronic ulcer of left heel and midfoot limited to breakdown of skin; L03.115 Cellulitis of right lower limb; B95.7 Other staphylococcus as the cause of diseases classified elsewhere; N18.3 Chronic kidney disease, stage 3 (moderate); I70.203 Unspecified atherosclerosis of native arteries of extremities, bilateral legs; I10 Essential (primary) hypertension; E87.5 Hyperkalemia ==

== ENCOUNTER → 2018-08-11 | Outpatient (CLI) | payer OTHER | LOC: WCC 13:59 | DX: E11.621 Type 2 diabetes mellitus with foot ulcer (principal); E11.22 Type 2 diabetes mellitus with diabetic chronic kidney disease; L97.421 Non-pressure chronic ulcer of left heel and midfoot limited to breakdown of skin; L03.115 Cellulitis of right lower limb; B95.7 Other staphylococcus as the cause of diseases classified elsewhere; I70.203 Unspecified atherosclerosis of native arteries of extremities, bilateral legs; I10 Essential (primary) hypertension; E78.5 Hyperlipidemia, unspecified; N18.3 Chronic kidney disease, stage 3 (moderate) ==

== ENCOUNTER → 2018-08-14 | Outpatient (CLI) | payer OTHER | LOC: WCC 15:43 | DX: E11.621 Type 2 diabetes mellitus with foot ulcer (principal); E11.22 Type 2 diabetes mellitus with diabetic chronic kidney disease; L97.421 Non-pressure chronic ulcer of left heel and midfoot limited to breakdown of skin; L03.115 Cellulitis of right lower limb; B95.7 Other staphylococcus as the cause of diseases classified elsewhere; N18.3 Chronic kidney disease, stage 3 (moderate); I70.203 Unspecified atherosclerosis of native arteries of extremities, bilateral legs; I10 Essential (primary) hypertension; E78.5 Hyperlipidemia, unspecified ==

== ENCOUNTER → 2018-08-16 | Outpatient (CLI) | payer OTHER | LOC: WCC 12:20 | PROVIDERS: ATTEND Podiatrist Foot Surgery | DX: E11.621 Type 2 diabetes mellitus with foot ulcer (principal); E11.22 Type 2 diabetes mellitus with diabetic chronic kidney disease; L97.421 Non-pressure chronic ulcer of left heel and midfoot limited to breakdown of skin; N18.3 Chronic kidney disease, stage 3 (moderate); L03.115 Cellulitis of right lower limb; B95.7 Other staphylococcus as the cause of diseases classified elsewhere; I70.203 Unspecified atherosclerosis of native arteries of extremities, bilateral legs; I10 Essential (primary) hypertension; E78.5 Hyperlipidemia, unspecified ==

== ENCOUNTER → 2018-08-18 | Outpatient (CLI) | payer OTHER | LOC: WCC 15:12 | PROVIDERS: ATTEND Podiatrist Foot Surgery | DX: E11.621 Type 2 diabetes mellitus with foot ulcer (principal); E11.22 Type 2 diabetes mellitus with diabetic chronic kidney disease; L97.421 Non-pressure chronic ulcer of left heel and midfoot limited to breakdown of skin; L03.115 Cellulitis of right lower limb; N18.3 Chronic kidney disease, stage 3 (moderate); B95.7 Other staphylococcus as the cause of diseases classified elsewhere; I70.203 Unspecified atherosclerosis of native arteries of extremities, bilateral legs; I10 Essential (primary) hypertension; E78.5 Hyperlipidemia, unspecified ==

== ENCOUNTER → 2018-08-21 | Outpatient (CLI) | payer OTHER | LOC: WCC 10:47 | PROVIDERS: ATTEND Plastic Surgery | DX: E11.621 Type 2 diabetes mellitus with foot ulcer (principal); E11.22 Type 2 diabetes mellitus with diabetic chronic kidney disease; N18.3 Chronic kidney disease, stage 3 (moderate); L97.421 Non-pressure chronic ulcer of left heel and midfoot limited to breakdown of skin; L03.115 Cellulitis of right lower limb; B95.7 Other staphylococcus as the cause of diseases classified elsewhere; I70.203 Unspecified atherosclerosis of native arteries of extremities, bilateral legs; I10 Essential (primary) hypertension; E78.5 Hyperlipidemia, unspecified ==

== ENCOUNTER → 2018-08-23 | Outpatient (CLI) | payer OTHER | LOC: WCC 03:00 | PROVIDERS: ATTEND Family Medicine | DX: E11.621 Type 2 diabetes mellitus with foot ulcer (principal); E11.22 Type 2 diabetes mellitus with diabetic chronic kidney disease; L97.421 Non-pressure chronic ulcer of left heel and midfoot limited to breakdown of skin; L03.115 Cellulitis of right lower limb; B95.7 Other staphylococcus as the cause of diseases classified elsewhere; N18.3 Chronic kidney disease, stage 3 (moderate); I70.203 Unspecified atherosclerosis of native arteries of extremities, bilateral legs; I10 Essential (primary) hypertension; E87.5 Hyperkalemia ==

== ENCOUNTER → 2018-08-25 | Outpatient (CLI) | payer OTHER | LOC: WCC 15:38 | PROVIDERS: ATTEND Family Medicine | DX: E11.621 Type 2 diabetes mellitus with foot ulcer (principal); E11.22 Type 2 diabetes mellitus with diabetic chronic kidney disease; L97.421 Non-pressure chronic ulcer of left heel and midfoot limited to breakdown of skin; N18.3 Chronic kidney disease, stage 3 (moderate); L03.115 Cellulitis of right lower limb; B95.7 Other staphylococcus as the cause of diseases classified elsewhere; I70.203 Unspecified atherosclerosis of native arteries of extremities, bilateral legs; I10 Essential (primary) hypertension; E78.5 Hyperlipidemia, unspecified ==

== ENCOUNTER → 2018-08-28 | Outpatient (CLI) | payer OTHER ==
[~2018-08-28] MED LIST changes: -COLLAGENASE OINTMENT 30 GM TUBE ONE; +MINERAL OIL/PETROLAT/GLYCERI 6OZ BTL ONE
== END ==
LOC: WCC 15:02
PROVIDERS: ATTEND Family Medicine
DX: E11.621 Type 2 diabetes mellitus with foot ulcer (principal); E11.22 Type 2 diabetes mellitus with diabetic chronic kidney disease; L97.421 Non-pressure chronic ulcer of left heel and midfoot limited to breakdown of skin; L03.115 Cellulitis of right lower limb; B95.7 Other staphylococcus as the cause of diseases classified elsewhere; N18.3 Chronic kidney disease, stage 3 (moderate); I70.203 Unspecified atherosclerosis of native arteries of extremities, bilateral legs; I10 Essential (primary) hypertension; E78.5 Hyperlipidemia, unspecified

== ENCOUNTER → 2018-08-30 | Outpatient (CLI) | payer OTHER | LOC: WCC 14:18 | PROVIDERS: ATTEND Family Medicine | DX: E11.621 Type 2 diabetes mellitus with foot ulcer (principal); E11.22 Type 2 diabetes mellitus with diabetic chronic kidney disease; L97.421 Non-pressure chronic ulcer of left heel and midfoot limited to breakdown of skin; L03.115 Cellulitis of right lower limb; B95.7 Other staphylococcus as the cause of diseases classified elsewhere; N18.3 Chronic kidney disease, stage 3 (moderate); I70.203 Unspecified atherosclerosis of native arteries of extremities, bilateral legs; I10 Essential (primary) hypertension; E78.5 Hyperlipidemia, unspecified ==

== ENCOUNTER → 2018-09-01 | Outpatient (CLI) | payer OTHER | LOC: WCC 14:37 | PROVIDERS: ATTEND Family Medicine | DX: E11.621 Type 2 diabetes mellitus with foot ulcer (principal); E11.22 Type 2 diabetes mellitus with diabetic chronic kidney disease; L97.421 Non-pressure chronic ulcer of left heel and midfoot limited to breakdown of skin; L03.115 Cellulitis of right lower limb; B95.7 Other staphylococcus as the cause of diseases classified elsewhere; N18.3 Chronic kidney disease, stage 3 (moderate); I70.203 Unspecified atherosclerosis of native arteries of extremities, bilateral legs; I10 Essential (primary) hypertension; E78.5 Hyperlipidemia, unspecified ==

== ENCOUNTER → 2018-09-04 | Outpatient (CLI) | payer OTHER | LOC: WCC 11:51 | PROVIDERS: ATTEND Family Medicine | DX: E11.621 Type 2 diabetes mellitus with foot ulcer (principal); E11.22 Type 2 diabetes mellitus with diabetic chronic kidney disease; L97.421 Non-pressure chronic ulcer of left heel and midfoot limited to breakdown of skin; L03.115 Cellulitis of right lower limb; N18.3 Chronic kidney disease, stage 3 (moderate); B95.7 Other staphylococcus as the cause of diseases classified elsewhere; I70.203 Unspecified atherosclerosis of native arteries of extremities, bilateral legs; I10 Essential (primary) hypertension; E78.5 Hyperlipidemia, unspecified ==

== ENCOUNTER → 2018-09-06 | Outpatient (CLI) | payer OTHER | LOC: WCC 15:21 | PROVIDERS: ATTEND Family Medicine | DX: E11.621 Type 2 diabetes mellitus with foot ulcer (principal); E11.22 Type 2 diabetes mellitus with diabetic chronic kidney disease; L97.421 Non-pressure chronic ulcer of left heel and midfoot limited to breakdown of skin; L03.115 Cellulitis of right lower limb; B95.7 Other staphylococcus as the cause of diseases classified elsewhere; N18.3 Chronic kidney disease, stage 3 (moderate); I70.203 Unspecified atherosclerosis of native arteries of extremities, bilateral legs; I10 Essential (primary) hypertension; E78.5 Hyperlipidemia, unspecified ==

== ENCOUNTER → 2018-09-08 | Outpatient (CLI) | payer OTHER | LOC: WCC 15:29 | PROVIDERS: ATTEND Family Medicine | DX: E11.621 Type 2 diabetes mellitus with foot ulcer (principal); E11.22 Type 2 diabetes mellitus with diabetic chronic kidney disease; L97.421 Non-pressure chronic ulcer of left heel and midfoot limited to breakdown of skin; L03.115 Cellulitis of right lower limb; B95.7 Other staphylococcus as the cause of diseases classified elsewhere; N18.3 Chronic kidney disease, stage 3 (moderate); I70.203 Unspecified atherosclerosis of native arteries of extremities, bilateral legs; I10 Essential (primary) hypertension; E78.5 Hyperlipidemia, unspecified ==

== ENCOUNTER → 2018-09-11 | Outpatient (CLI) | payer OTHER | LOC: WCC 11:11 | PROVIDERS: ATTEND Family Medicine | DX: E11.621 Type 2 diabetes mellitus with foot ulcer (principal); E11.22 Type 2 diabetes mellitus with diabetic chronic kidney disease; L97.421 Non-pressure chronic ulcer of left heel and midfoot limited to breakdown of skin; L03.115 Cellulitis of right lower limb; B95.7 Other staphylococcus as the cause of diseases classified elsewhere; N18.3 Chronic kidney disease, stage 3 (moderate); I70.203 Unspecified atherosclerosis of native arteries of extremities, bilateral legs; I10 Essential (primary) hypertension; E78.5 Hyperlipidemia, unspecified ==

== ENCOUNTER → 2018-09-13 | Outpatient (CLI) | payer OTHER | LOC: WCC 14:18 | PROVIDERS: ATTEND Family Medicine | DX: E11.621 Type 2 diabetes mellitus with foot ulcer (principal); E11.22 Type 2 diabetes mellitus with diabetic chronic kidney disease; L97.421 Non-pressure chronic ulcer of left heel and midfoot limited to breakdown of skin; L03.115 Cellulitis of right lower limb; B95.7 Other staphylococcus as the cause of diseases classified elsewhere; N18.3 Chronic kidney disease, stage 3 (moderate); I70.203 Unspecified atherosclerosis of native arteries of extremities, bilateral legs; I10 Essential (primary) hypertension; E78.5 Hyperlipidemia, unspecified ==

== ENCOUNTER → 2018-09-15 | Outpatient (CLI) | payer OTHER | LOC: WCC 15:30 | PROVIDERS: ATTEND Family Medicine | DX: E11.621 Type 2 diabetes mellitus with foot ulcer (principal); L97.421 Non-pressure chronic ulcer of left heel and midfoot limited to breakdown of skin; L03.115 Cellulitis of right lower limb; B95.7 Other staphylococcus as the cause of diseases classified elsewhere; E11.22 Type 2 diabetes mellitus with diabetic chronic kidney disease; N18.3 Chronic kidney disease, stage 3 (moderate); I70.203 Unspecified atherosclerosis of native arteries of extremities, bilateral legs; I10 Essential (primary) hypertension; E78.5 Hyperlipidemia, unspecified ==

== ENCOUNTER → 2018-09-19 | Outpatient (CLI) | payer OTHER | LOC: WCC 14:30 | PROVIDERS: ATTEND Family Medicine | DX: E11.621 Type 2 diabetes mellitus with foot ulcer (principal); E11.22 Type 2 diabetes mellitus with diabetic chronic kidney disease; L97.421 Non-pressure chronic ulcer of left heel and midfoot limited to breakdown of skin; L03.115 Cellulitis of right lower limb; B95.7 Other staphylococcus as the cause of diseases classified elsewhere; N18.3 Chronic kidney disease, stage 3 (moderate); I70.203 Unspecified atherosclerosis of native arteries of extremities, bilateral legs; I10 Essential (primary) hypertension; E78.5 Hyperlipidemia, unspecified ==

== ENCOUNTER → 2018-09-22 | Outpatient (CLI) | payer OTHER | LOC: WCC 14:28 | PROVIDERS: ATTEND Podiatrist Foot Surgery | DX: E11.621 Type 2 diabetes mellitus with foot ulcer (principal); E11.22 Type 2 diabetes mellitus with diabetic chronic kidney disease; L97.421 Non-pressure chronic ulcer of left heel and midfoot limited to breakdown of skin; N18.3 Chronic kidney disease, stage 3 (moderate); L03.115 Cellulitis of right lower limb; B95.7 Other staphylococcus as the cause of diseases classified elsewhere; I70.203 Unspecified atherosclerosis of native arteries of extremities, bilateral legs; E78.5 Hyperlipidemia, unspecified ==

== ENCOUNTER → 2018-09-25 | Outpatient (CLI) | payer OTHER | LOC: WCC 15:11 | PROVIDERS: ATTEND Family Medicine | DX: E11.621 Type 2 diabetes mellitus with foot ulcer (principal); E11.22 Type 2 diabetes mellitus with diabetic chronic kidney disease; L97.421 Non-pressure chronic ulcer of left heel and midfoot limited to breakdown of skin; L03.115 Cellulitis of right lower limb; N18.3 Chronic kidney disease, stage 3 (moderate); I10 Essential (primary) hypertension; B95.7 Other staphylococcus as the cause of diseases classified elsewhere; I70.203 Unspecified atherosclerosis of native arteries of extremities, bilateral legs; E78.5 Hyperlipidemia, unspecified ==

== ENCOUNTER → 2018-09-27 | Outpatient (CLI) | payer OTHER | LOC: WCC 15:04 | PROVIDERS: ATTEND Family Medicine | DX: E11.621 Type 2 diabetes mellitus with foot ulcer (principal); E11.22 Type 2 diabetes mellitus with diabetic chronic kidney disease; L97.421 Non-pressure chronic ulcer of left heel and midfoot limited to breakdown of skin; N18.3 Chronic kidney disease, stage 3 (moderate); L03.115 Cellulitis of right lower limb; B95.7 Other staphylococcus as the cause of diseases classified elsewhere; I70.203 Unspecified atherosclerosis of native arteries of extremities, bilateral legs; I10 Essential (primary) hypertension; E78.5 Hyperlipidemia, unspecified ==

== ENCOUNTER → 2018-09-29 | Outpatient (CLI) | payer OTHER | LOC: WCC 14:28 | PROVIDERS: ATTEND Family Medicine | DX: E11.621 Type 2 diabetes mellitus with foot ulcer (principal); E11.22 Type 2 diabetes mellitus with diabetic chronic kidney disease; L97.421 Non-pressure chronic ulcer of left heel and midfoot limited to breakdown of skin; L03.115 Cellulitis of right lower limb; B95.7 Other staphylococcus as the cause of diseases classified elsewhere; N18.3 Chronic kidney disease, stage 3 (moderate); I70.203 Unspecified atherosclerosis of native arteries of extremities, bilateral legs; I10 Essential (primary) hypertension; E78.5 Hyperlipidemia, unspecified ==

== ENCOUNTER → 2018-10-06 | Outpatient (CLI) | payer OTHER | LOC: WCC 14:06 | PROVIDERS: ATTEND Family Medicine | DX: E11.621 Type 2 diabetes mellitus with foot ulcer (principal); E11.22 Type 2 diabetes mellitus with diabetic chronic kidney disease; L97.421 Non-pressure chronic ulcer of left heel and midfoot limited to breakdown of skin; L03.115 Cellulitis of right lower limb; N18.3 Chronic kidney disease, stage 3 (moderate); I10 Essential (primary) hypertension; B95.7 Other staphylococcus as the cause of diseases classified elsewhere; E78.5 Hyperlipidemia, unspecified ==

== ENCOUNTER → 2018-10-09 | Outpatient (CLI) | payer OTHER | LOC: WCC 16:03 | PROVIDERS: ATTEND Family Medicine | DX: E11.621 Type 2 diabetes mellitus with foot ulcer (principal); E11.22 Type 2 diabetes mellitus with diabetic chronic kidney disease; L97.421 Non-pressure chronic ulcer of left heel and midfoot limited to breakdown of skin; L03.115 Cellulitis of right lower limb; B95.7 Other staphylococcus as the cause of diseases classified elsewhere; N18.3 Chronic kidney disease, stage 3 (moderate); I70.203 Unspecified atherosclerosis of native arteries of extremities, bilateral legs; I10 Essential (primary) hypertension; E78.5 Hyperlipidemia, unspecified ==